=== PATIENT | male | born 1965 | race Caucasian/White ===

== ENCOUNTER 2016-04-28 13:20 | Emergency (ER) | payer MEDICARE, MEDICAID ==
[2016-04-28 13:45] VITALS: TEMP 98.2; BMI 26.1
--- NOTE | 2016-04-28 13:45 | EDPRACDOC ---
- General Information Stated Complaint: RT ARM PAIN NO INJURY Time Seen by Provider: 04/28/16 13:39 Information Source: Patient, Guardian Home Medications: Home Medications Aspirin (Enteric Coated) [Halfprin] 81 mg PO DAILY 08/25/12 Ciclopirox/Ure/Camph/Menth/Euc [Ciclopirox 8% Treatment Kit] 34.6 ml TP DAILY Omeprazole [Prilosec] 20 mg PO DAILY 08/25/12 Simvastatin 20 mg PO HS 08/25/12 Artificial Tears 1 - 2 drops OU TID 04/05/13 Baby Shampoo 1 gisell TOP BID 01/27/14 Loratadine [Claritin] 10 mg PO DAILY 01/27/14 Calcium Polycarbophil [Fiber Lax] 625 mg PO DAILY 11/08/14 Metoprolol Succinate [Toprol Xl] 12.5 mg PO DAILY #30 tab.sr.24h 11/12/14 Naproxen [NAPROSYN,enteric coated] 500 mg PO BIDWM #30 tab 11/12/14 Cyclobenzaprine HCl [Flexeril] 10 mg PO TID PRN #15 tablet 04/28/16 Prednisone [Deltasone, Orasone] 20 mg PO DAILY #20 tab 04/28/16 Tramadol HCl [Ultram] 50 mg PO Q6H PRN #15 tab 04/28/16 Allergies/Adverse Reactions: Allergies Allergy/AdvReac Type Severity Reaction Status Date / Time No Known Allergies Allergy Verified 04/28/16 13:46 - History of Present Illness Onset: 2 days HPI: Pt c/o R shoulder to forearm pain with neck pain, cp, sob, lower back pain x 2 days. Denies injury, abd pain, n/v, changes in bowel or bladder, rash. Description: Reports: With Use, At Rest Location: Reports: Right Circumstances: Reports: Spontaneous Relevant History: Reports: None Dominant Hand: Right Pain Severity: Moderate Able to Move Shoulder?: Yes Associated Signs & Symptoms: Reports: Chest pain, Neck pain, Arm pain, Elbow pain ED Past Medical History - History Reviewed Yes Nurses notes reviewed and agree except as marked - Patient Medical History Cardiac History: Reports: Hypertension, Hypercholesterolemia GI/ History: Reports: Gastroesophageal Reflux Psychological History: Reports: Anxiety. Denies: Substance Use Disorder Surgical History: Reports: Other (R knee surgery) - Family Medical History Reports: Hypertension, Cardiac Disorders (FATHER). Denies: Diabetes, Cancer, Stroke - Social Medical History Smoking Status: Never smoker (confirmed.) Social History: Denies: Substance Use Disorder ETOH: None Substance Abuse: None EDM Review of Systems - Review of Systems Constitutional: No Symptoms Reported. negative: Fever, Chills, Weakness, Fatigue, Loss of Appetite Respiratory: No Symptoms Reported. negative: Cough, Brassy Cough, Barky Cough, Shortness of Breath, Wheezing, Hemoptysis Cardiovascular: No Symptoms Reported. negative: Chest Pain, Palpitations, Syncope, Edema, Orthopnea, PND, Skin Mottling, Cyanosis Gastrointestinal: No Symptoms Reported. negative: Pain, Constipation, Nausea, Vomiting, Diarrhea, Melena, Formula Intolerance Neurological: No Symptoms Reported. negative: Headache, Dizziness, Seizure, Numbness, Weakness, Speech Difficulty, Gait Difficulty Musculoskeletal: Arm, Back, Elbow, Forearm, Neck, Shoulder Integumentary: No Symptoms Reported. negative: Itching, Rash, Bruising, Wound Allergic/Immunologic: No Symptoms Reported. negative: Hives, Itching Hematologic: No Symptoms Reported. negative: Lymphadenopathy, Easy Bruising, Easy Bleeding Psychiatric: No Symptoms Reported. negative: Anxiety, Depression, Hallucinations, Insomnia, Suicidal - Physical Exam Constitutional: Alert (Awake), No apparent distress Oriented to: Time, Person, Place Last recorded Vital Signs: Last Vital Signs Temp 98.2 F 04/28/16 13:37 Pulse 85 04/28/16 13:37 Resp 20 04/28/16 13:37 BP 118/63 04/28/16 13:37 Pulse Ox 92 04/28/16 13:37 Oxygen Pulse Oxygen Saturation 92 O2 Device Room Air Oxygen Flow Rate Fraction of Inspired Oxygen ( FIO2) - HEENT Head: Normal ( normocephalic) Neck: Normal (FROM, trachea at midline) - Respiratory/Cardiovascular Respiratory: Normal - CTA (BBS clear to auscultation without adventitious sounds ) Cardiovascular: Normal (RRR without murmur, gallop or rub) - Musculoskeletal Back: Normal (Non-Tender) Extremities: Normal (Normal tone, Pulses 2+ No cyanosis or edema, FROM) - Integumentary Skin: Normal, Warm, Dry Lymphatics: Normal (no adenopathy) - Neurologic Memory Impaired: Normal Motor Function: Normal (Normal tone, Pulses 2+ No cyanosis or edema, FROM) Mood Description: Normal Perception: Normal ED Shoulder Problem Exam - Musculoskeletal Clavicle: Normal Shoulder: negative: Swelling, Ecchymosis, Deformity, Dislocation, Limited ROM, Tender, Other Drop arm test: Negative Impingement test: Negative Arm: Normal Distal Function/Circulation: Normal - Differential Diagnosis Cervical disc disease, Rotator cuff injury, Sprain, Other (bronchitis, pna) - Diagnostic Imaging C-spine Image interpreted by: Radiologist IMPRESSION: 1. No acute findings. 2. Similar findings of an accentuated cervical lordosis with mild multilevel cervical spine DDD. Chest Image interpreted by: Radiologist IMPRESSION: Basilar atelectasis without acute cardiopulmonary findings. Decision Time to Discharge: 14:55 - Departure Disposition: Home Condition: Good Final Diagnosis: Cervical radiculopathy Instructions: Cervical Radiculopathy (ED) Education/Counseling Given To: Patient, [employer] Education/Counseling Given Regarding: Diagnosis, Treatment, Follow Up Referrals: Mary Candelario MD [Primary Care Provider] - One Week Prescriptions: New Cyclobenzaprine HCl [Flexeril] 10 mg PO TID PRN #15 tablet PRN Reason: Pain Prednisone [Deltasone, Orasone] 20 mg PO DAILY #20 tab Tramadol HCl [Ultram] 50 mg PO Q6H PRN #15 tab PRN Reason: Pain No Action Ciclopirox/Ure/Camph/Menth/Euc [Ciclopirox 8% Treatment Kit] 34.6 ml TP DAILY Simvastatin 20 mg PO HS Omeprazole [Prilosec] 20 mg PO DAILY Aspirin (Enteric Coated) [Halfprin] 81 mg PO DAILY Artificial Tears 1 - 2 drops OU TID Loratadine [Claritin] 10 mg PO DAILY Baby Shampoo 1 gisell TOP BID Calcium Polycarbophil [Fiber Lax] 625 mg PO DAILY Metoprolol Succinate [Toprol Xl] 12.5 mg PO DAILY #30 tab.sr.24h Naproxen [NAPROSYN,enteric coated] 500 mg PO BIDWM #30 tab Additional Instructions: Return for worse or different symptoms.
--- NOTE | 2016-04-28 14:39 | DIRPT ---
CLINICAL DATA: Wheezing. EXAM: CHEST 2 VIEW COMPARISON: 11/11/2014. FINDINGS: Bibasilar atelectasis without focal airspace consolidation, pulmonary edema, or pleural effusion. Cardiopericardial silhouette is at upper limits of normal for size. Stable mild prominence of mediastinal contours. The visualized bony structures of the thorax are intact. IMPRESSION: Basilar atelectasis without acute cardiopulmonary findings. Electronically Signed By: Rex Valverde M.D. On: 04/28/2016 14:37
--- NOTE | 2016-04-28 14:40 | DIRPT ---
CLINICAL DATA: Neck pain for 2 days. EXAM: CERVICAL SPINE - COMPLETE 4+ VIEW COMPARISON: Cervical spine CT - 04/05/2013 FINDINGS: Re- demonstrated accentuated cervical lordosis. Unchanged mild (approximately 4 mm) of anterolisthesis of C4 upon C5 an approximately 2 mm of anterolisthesis of C5 upon C6. The bilateral facets appear normally aligned. The dens is suboptimally visualized on the provided open mouth odontoid and Fuchs radiographs. No definite fracture or static subluxation of the cervical spine. Cervical vertebral body heights are preserved. Prevertebral soft tissues are normal. Mild multilevel cervical spine DDD, worse at C4-C5 and C5-C6 with disc space height loss, endplate irregularity and sclerosis. Regional soft tissues appear normal. Limited visualization of the lung apices is normal. IMPRESSION: 1. No acute findings. 2. Similar findings of an accentuated cervical lordosis with mild multilevel cervical spine DDD. Electronically Signed By: Julien Nunez M.D. On: 04/28/2016 14:37
[2016-04-28 15:08] VITALS: BP 120/75; PULSE 87
== END 2016-04-28 15:28 | disposition home or self-care (01) ==
LOC: EDMC 13:20
DX: M54.12 Radiculopathy, cervical region (principal)
CPT/HCPCS: 71020; 72050; 99282